=== PATIENT | female | born 1995 | race Caucasian/White ===

== ENCOUNTER 2017-07-05 10:48 | Emergency (ER) | payer BC, MEDICAID ==
[~2017-07-05] VITALS: Ht 162.6 cm; Wt 54.5 kg
[2017-07-05] MEDS ORDERED: KETOROLAC 60MG/2ML VIAL IM ONE (11:45)
[2017-07-05 14:47] VITALS: BP 109/55
== END 2017-07-05 15:26 | disposition home or self-care (01) ==
LOC: ER 11:13
DX: M25.562 Pain in left knee (principal); M25.572 Pain in left ankle and joints of left foot; J45.909 Unspecified asthma, uncomplicated; F90.9 Attention-deficit hyperactivity disorder, unspecified type; Z88.0 Allergy status to penicillin
CPT/HCPCS: 29505; 73562; 73590; 93971; 96372; 99284; J1885

== ENCOUNTER 2017-12-04 07:23 | Emergency (ER) | payer MEDICAID | END 2017-12-04 07:56 | disposition left against medical advice (07) | LOC: ER 07:23 | DX: Z53.21 Procedure and treatment not carried out due to patient leaving prior to being seen by health care provider (principal) ==

== ENCOUNTER 2018-03-16 03:17 | Emergency (ER) | payer MEDICAID ==
[~2018-03-16] VITALS: Ht 160 cm; Wt 57.0 kg
[2018-03-16 03:32] VITALS: BP 111/69
== END 2018-03-16 09:10 | disposition left against medical advice (07) ==
LOC: ER 03:17
DX: Z53.21 Procedure and treatment not carried out due to patient leaving prior to being seen by health care provider (principal)

== ENCOUNTER 2018-05-02 23:10 | Emergency (ER) | payer MEDICAID ==
[~2018-05-02] VITALS: Ht 162.6 cm; Wt 59.0 kg
[2018-05-03 02:19] LABS: BASOPHILS % 0.4 % (0.0-2.0); EOSINOPHILS % 2.8 % (0.0-5.0); HEMATOCRIT. 42.2 % (36.0-48.0); HEMOGLOBIN. 13.8 g/dL (12.0-16.0); LYMPHOCYTES % 50.2 % (20.0-50.0); MEAN CORPUSCULAR VOLUME 82.5 fL (81.0-99.0); MONOCYTES % 6.3 % (2.0-8.0); NEUTROPHILS % 40.3 % (40.0-76.0); PLATELET 392 x1000/uL (130-400); RED BLOOD CELL COUNT 5.11 mill/uL (4.2-5.4); RED CELL DISTRIBUTION WIDTH 14.7 % (11.6-14.6)
[2018-05-03 02:26] LABS: CHLORIDE 104 mEq/L (98-107)
[2018-05-03 02:30] LABS: ETHANOL BLOOD < 10 mg/dL
[2018-05-03 04:39] VITALS: BP 110/61
[2018-05-03 06:07] LABS: CLARITY URINE CLOUDY (CLEAR); COLOR URINE YELLOW (YELLOW); KETONES URINE TRACE (NEGATIVE); LEUKOCYTE ESTERASE URINE 2+ (NEGATIVE); NITRITE URINE NEGATIVE (NEGATIVE); OCCULT BLOOD URINE TRACE (NEGATIVE); PH URINE 5.5 (4.5-8.0); PROTEIN URINE TRACE (NEGATIVE); SPECIFIC GRAVITY URINE 1.039 (1.005-1.030); UROBILINOGEN URINE 0.2 E.U./dL (0.2-1.0)
[2018-05-03 06:25] LABS: *BARBITURATES SCREEN URINE NEGATIVE (NEGATIVE); *BENZODIAZEPINES SCREEN URINE NEGATIVE (NEGATIVE); *COCAINE SCREEN URINE NEGATIVE (NEGATIVE); METHADONE URINE SCREEN NEGATIVE (NEGATIVE)
[2018-05-03 06:26] LABS: OPIATES URINE SCREEN NEGATIVE (NEGATIVE); PHENCYCLIDINE URINE SCREEN NEGATIVE (NEGATIVE)
[2018-05-03 06:36] LABS: *AMPHETAMINES SCREEN URINE PRESUMTIVE POSITIVE (NEGATIVE); CANNABINOID URINE SCREEN PRESUMTIVE POSITIVE (NEGATIVE)
== END 2018-05-03 05:32 | disposition left against medical advice (07) ==
LOC: ER 05-03 01:24
DX: R44.1 Visual hallucinations (principal); R44.0 Auditory hallucinations; F12.10 Cannabis abuse, uncomplicated; F15.10 Other stimulant abuse, uncomplicated; J45.909 Unspecified asthma, uncomplicated; F31.9 Bipolar disorder, unspecified; Z88.0 Allergy status to penicillin
CPT/HCPCS: 36415; 80305; 99284

== ENCOUNTER 2019-05-31 13:42 | Emergency (ER) | payer MEDICAID ==
[~2019-05-31] VITALS: Ht 152.4 cm; Wt 60.0 kg
[2019-05-31 14:01] VITALS: BP 132/77
== END 2019-05-31 16:34 | disposition home or self-care (01) ==
LOC: ER 13:42
DX: R11.2 Nausea with vomiting, unspecified (principal); R03.0 Elevated blood-pressure reading, without diagnosis of hypertension; F15.10 Other stimulant abuse, uncomplicated; F12.90 Cannabis use, unspecified, uncomplicated; Z86.59 Personal history of other mental and behavioral disorders
CPT/HCPCS: 99283

== ENCOUNTER 2019-08-14 17:31 | Emergency (ER) | payer MEDICAID ==
[~2019-08-14] VITALS: Ht 162.6 cm; Wt 62.0 kg
[2019-08-14 17:41] VITALS: BP 129/80
[2019-08-14] MEDS ORDERED: ACETAMINOPHEN 325MG TABLET PO ONE (18:45)
[2019-08-14 19:28] LABS: *BARBITURATES SCREEN URINE NEGATIVE (NEGATIVE)
[2019-08-14 19:29] LABS: *BENZODIAZEPINES SCREEN URINE NEGATIVE (NEGATIVE); *COCAINE SCREEN URINE NEGATIVE (NEGATIVE); CANNABINOID URINE SCREEN NEGATIVE (NEGATIVE); METHADONE URINE SCREEN NEGATIVE (NEGATIVE); OPIATES URINE SCREEN NEGATIVE (NEGATIVE); PHENCYCLIDINE URINE SCREEN NEGATIVE (NEGATIVE)
[2019-08-14 19:36] LABS: *AMPHETAMINES SCREEN URINE PRESUMTIVE POSITIVE (NEGATIVE)
== END 2019-08-14 19:54 | disposition home or self-care (01) ==
LOC: ER 17:31
DX: M25.512 Pain in left shoulder (principal); F15.10 Other stimulant abuse, uncomplicated; F16.10 Hallucinogen abuse, uncomplicated; J45.909 Unspecified asthma, uncomplicated; F12.10 Cannabis abuse, uncomplicated; F31.9 Bipolar disorder, unspecified
CPT/HCPCS: 73030; 73080; 73090; 73120; 80305; 81025; 99284

== ENCOUNTER 2020-06-29 21:57 | Emergency (ER) | payer MEDICAID ==
[~2020-06-29] VITALS: Ht 162.6 cm; Wt 71.0 kg
[2020-06-29 22:34] VITALS: BP 135/75
== END 2020-06-29 22:53 | disposition left against medical advice (07) ==
LOC: ER 21:57
DX: Z53.21 Procedure and treatment not carried out due to patient leaving prior to being seen by health care provider (principal)

== ENCOUNTER 2020-12-25 05:29 | Emergency (ER) | payer MEDICAID ==
[~2020-12-25] VITALS: Ht 160 cm; Wt 72.0 kg
[2020-12-25 05:42] VITALS: BP 124/85
[2020-12-25] MEDS ORDERED: CLOT15CR27 TP (06:10)
== END 2020-12-25 06:26 | disposition home or self-care (01) ==
LOC: ER 05:29
DX: B35.6 Tinea cruris (principal); F25.0 Schizoaffective disorder, bipolar type; J45.909 Unspecified asthma, uncomplicated; F15.90 Other stimulant use, unspecified, uncomplicated; F12.90 Cannabis use, unspecified, uncomplicated
CPT/HCPCS: 81025; 99282

== ENCOUNTER 2021-03-17 19:39 | Emergency (ER) | payer MEDICAID ==
[~2021-03-17] VITALS: Ht 165.1 cm; Wt 74.0 kg
[~2021-03-17 19:39] MED LIST: CLOT15CR27 TP
[2021-03-17 19:52] VITALS: BP 124/85
[2021-03-17 20:28] LABS: CLARITY URINE CLEAR (CLEAR); COLOR URINE YELLOW (YELLOW); KETONES URINE TRACE (NEGATIVE); LEUKOCYTE ESTERASE URINE NEGATIVE (NEGATIVE); NITRITE URINE NEGATIVE (NEGATIVE); OCCULT BLOOD URINE 2+ (NEGATIVE); PROTEIN URINE NEGATIVE (NEGATIVE); SPECIFIC GRAVITY URINE 1.026 (1.005-1.030); UROBILINOGEN URINE 0.2 E.U./dL (0.2-1.0)
== END 2021-03-18 00:35 | disposition left against medical advice (07) ==
LOC: ER 19:39
DX: R07.89 Other chest pain (principal); J45.909 Unspecified asthma, uncomplicated; I10 Essential (primary) hypertension; F12.10 Cannabis abuse, uncomplicated; F15.10 Other stimulant abuse, uncomplicated
CPT/HCPCS: 71045; 81003; 81025; 93005; 99285

== ENCOUNTER 2021-05-19 15:11 | Emergency (ER) | payer OTHER, MEDICAID ==
[~2021-05-19] VITALS: Ht 162.6 cm; Wt 74.0 kg
[2021-05-19 15:14] VITALS: BP 123/76
== END 2021-05-19 19:19 | disposition left against medical advice (07) ==
LOC: ER 15:11
DX: Z53.21 Procedure and treatment not carried out due to patient leaving prior to being seen by health care provider (principal)
CPT/HCPCS: 71045

== ENCOUNTER 2021-06-30 22:54 | Emergency (ER) | payer OTHER, MEDICAID ==
[~2021-06-30] VITALS: Ht 167.6 cm; Wt 81.1 kg
[2021-07-01 00:28] LABS: BASOPHILS % 0.4 % (0.0-2.0); EOSINOPHILS % 1.8 % (0.0-5.0); LYMPHOCYTES % 37.6 % (20.0-50.0); MEAN CORPUSCULAR HEMOGLOBIN 27.3 pg (28.0-32.0); MEAN CORPUSCULAR VOLUME 83.8 fL (81.0-99.0); MEAN PLATELET VOLUME 6.8 fl (7.4-10.4); MONOCYTES % 6.5 % (2.0-8.0); NEUTROPHILS % 53.7 % (40.0-76.0); PLATELET 380 x1000/uL (130-400); RED BLOOD CELL COUNT 4.78 mill/uL (4.2-5.4); RED CELL DISTRIBUTION WIDTH 13.7 % (11.6-14.6)
[2021-07-01] MEDS ORDERED: OLANZAPINE 5MG TABLET ODT PO ONE (00:30)
[2021-07-01 00:35] LABS: CHLORIDE 106 mEq/L (98-107)
[2021-07-01 00:39] LABS: ETHANOL BLOOD < 10 mg/dL
[2021-07-01 03:42] LABS: CLARITY URINE CLEAR (CLEAR); COLOR URINE YELLOW (YELLOW); KETONES URINE NEGATIVE (NEGATIVE); LEUKOCYTE ESTERASE URINE NEGATIVE (NEGATIVE); NITRITE URINE NEGATIVE (NEGATIVE); OCCULT BLOOD URINE 2+ (NEGATIVE); PH URINE 6.5 (4.5-8.0); PROTEIN URINE NEGATIVE (NEGATIVE); SPECIFIC GRAVITY URINE 1.021 (1.005-1.030); UROBILINOGEN URINE 0.2 E.U./dL (0.2-1.0)
[2021-07-01 03:51] LABS: *BARBITURATES SCREEN URINE NEGATIVE (NEGATIVE)
[2021-07-01 03:52] LABS: *BENZODIAZEPINES SCREEN URINE NEGATIVE (NEGATIVE); *COCAINE SCREEN URINE NEGATIVE (NEGATIVE); CANNABINOID URINE SCREEN NEGATIVE (NEGATIVE); METHADONE URINE SCREEN NEGATIVE (NEGATIVE); OPIATES URINE SCREEN NEGATIVE (NEGATIVE); PHENCYCLIDINE URINE SCREEN NEGATIVE (NEGATIVE)
[2021-07-01 03:53] LABS: *AMPHETAMINES SCREEN URINE PRESUMTIVE POSITIVE (NEGATIVE)
[2021-07-01 10:00] VITALS: BP 122/62
== END 2021-07-01 11:46 | disposition home or self-care (01) ==
LOC: ER 23:06
DX: R44.0 Auditory hallucinations (principal); R44.1 Visual hallucinations; J45.909 Unspecified asthma, uncomplicated; F31.9 Bipolar disorder, unspecified; I10 Essential (primary) hypertension; F12.10 Cannabis abuse, uncomplicated; F15.10 Other stimulant abuse, uncomplicated; Z20.822 Contact with and (suspected) exposure to COVID-19
CPT/HCPCS: 36415; 76830; 76856; 80053; 80305; 80320; 81003; 84702; 85025; 99285; C9803; U0003; U0005; G0480

== ENCOUNTER → 2021-10-25 | Emergency (ER) | payer OTHER, MEDICAID | LOC: ER 10:15 | DX: Z53.21 Procedure and treatment not carried out due to patient leaving prior to being seen by health care provider (principal) ==

== ENCOUNTER 2021-11-25 09:13 | Emergency (ER) | payer OTHER, MEDICAID ==
[~2021-11-25] VITALS: Ht 167.6 cm; Wt 76.0 kg
[2021-11-25 09:27] VITALS: BP 148/90
== END 2021-11-25 14:41 | disposition left against medical advice (07) ==
LOC: ER 10:53
DX: Z53.21 Procedure and treatment not carried out due to patient leaving prior to being seen by health care provider (principal)

== ENCOUNTER 2022-01-20 09:44 | Emergency (ER) | payer OTHER, MEDICAID ==
[~2022-01-20] VITALS: Ht 162.6 cm; Wt 80.0 kg
[2022-01-20 09:52] VITALS: BP 123/71
[2022-01-20] MEDS ORDERED: AZITHROMYCIN 500 MG TABLET PO SCH (10:30)
[2022-01-20] MEDS ORDERED: GENTAMICIN SULF 40MG/ML 2ML VIAL IM ONE (10:30)
[2022-01-20] MEDS ORDERED: DOXY100C5 MT (10:35)
[2022-01-20] MEDS ORDERED: OLAN5TAB3 PO (10:35)
[2022-01-20] MEDS ORDERED: ALBU6.7H3 INH (10:36)
[2022-01-20] MEDS ORDERED: CEFTRIAXONE SODIUM 500 MG/VIAL IM STA (11:09)
[2022-01-20 11:18] LABS: CLARITY URINE CLOUDY (CLEAR); COLOR URINE YELLOW (YELLOW); KETONES URINE TRACE (NEGATIVE); LEUKOCYTE ESTERASE URINE NEGATIVE (NEGATIVE); NITRITE URINE NEGATIVE (NEGATIVE); OCCULT BLOOD URINE 2+ (NEGATIVE); PROTEIN URINE TRACE (NEGATIVE); SPECIFIC GRAVITY URINE 1.033 (1.005-1.030)
[2022-01-22 09:07] LABS: HIV SCREEN 4G Non Reactive (Non Reactive)
== END 2022-01-20 13:20 | disposition home or self-care (01) ==
LOC: ER 10:13
DX: A74.9 Chlamydial infection, unspecified (principal); A54.9 Gonococcal infection, unspecified; Z76.0 Encounter for issue of repeat prescription; J45.909 Unspecified asthma, uncomplicated; F31.9 Bipolar disorder, unspecified; I10 Essential (primary) hypertension; F20.9 Schizophrenia, unspecified; F12.10 Cannabis abuse, uncomplicated; F15.10 Other stimulant abuse, uncomplicated
CPT/HCPCS: 81003; 81025; 86592; 86593; 86780; 87389; 96372; 99283; J0696; J1580

== ENCOUNTER 2022-01-29 22:16 | Emergency (ER) | payer OTHER, MEDICAID ==
[~2022-01-29] VITALS: Ht 162.6 cm; Wt 55.0 kg
[~2022-01-29 22:16] MED LIST changes: +ALBU6.7H3 INH; +DOXY100C5 MT; +OLAN5TAB3 PO
[2022-01-30 03:30] LABS: CHLORIDE 104 mEq/L (98-107)
[2022-01-30 03:32] LABS: CLARITY URINE CLEAR (CLEAR); COLOR URINE YELLOW (YELLOW); KETONES URINE 1+ (NEGATIVE); LEUKOCYTE ESTERASE URINE NEGATIVE (NEGATIVE); NITRITE URINE NEGATIVE (NEGATIVE); OCCULT BLOOD URINE TRACE (NEGATIVE); PH URINE 5.5 (4.5-8.0); PROTEIN URINE TRACE (NEGATIVE); SPECIFIC GRAVITY URINE 1.026 (1.005-1.030); UROBILINOGEN URINE 0.2 E.U./dL (0.2-1.0)
[2022-01-30 03:34] LABS: BASOPHILS % 0.2 % (0.0-2.0); EOSINOPHILS % 1.2 % (0.0-5.0); HCG SCREEN NEGATIVE; HEMATOCRIT. 39.5 % (36.0-48.0); HEMOGLOBIN. 12.8 g/dL (12.0-16.0); LYMPHOCYTES % 57.8 % (20.0-50.0); MEAN CORPUSCULAR HEMOGLOBIN 26.5 pg (28.0-32.0); MEAN PLATELET VOLUME 7.2 fl (7.4-10.4); MONOCYTES % 11.6 % (2.0-8.0); NEUTROPHILS % 29.2 % (40.0-76.0); PLATELET 329 x1000/uL (130-400); RED BLOOD CELL COUNT 4.81 mill/uL (4.2-5.4); RED CELL DISTRIBUTION WIDTH 14.7 % (11.6-14.6)
[2022-01-30 03:36] LABS: ETHANOL BLOOD < 10 mg/dL
[2022-01-30 03:50] LABS: *BARBITURATES SCREEN URINE NEGATIVE (NEGATIVE); *BENZODIAZEPINES SCREEN URINE NEGATIVE (NEGATIVE); CANNABINOID URINE SCREEN NEGATIVE (NEGATIVE); METHADONE URINE SCREEN NEGATIVE (NEGATIVE); OPIATES URINE SCREEN NEGATIVE (NEGATIVE)
[2022-01-30 03:59] LABS: *AMPHETAMINES SCREEN URINE PRESUMTIVE POSITIVE (NEGATIVE); *COCAINE SCREEN URINE PRESUMTIVE POSITIVE (NEGATIVE); PHENCYCLIDINE URINE SCREEN PRESUMTIVE POSITIVE (NEGATIVE)
[2022-01-30] MEDS ORDERED: POTASSIUM CHLORIDE 20MEQ TABLET SR PO ONE (04:15)
[2022-01-30] MEDS ORDERED: RISP05 PO (08:40)
[2022-01-30] MEDS ORDERED: RISPERIDONE 0.5MG TABLET PO SCH (09:00)
[2022-01-30 09:33] VITALS: BP 100/54
== END 2022-01-30 09:37 | disposition home or self-care (01) ==
LOC: ER 22:16
DX: F23 Brief psychotic disorder (principal); F15.10 Other stimulant abuse, uncomplicated; I10 Essential (primary) hypertension; F12.10 Cannabis abuse, uncomplicated; J45.909 Unspecified asthma, uncomplicated; Z88.0 Allergy status to penicillin
CPT/HCPCS: 36415; 80053; 80305; 80307; 80320; 80329; 81003; 81025; 84703; 85025; 99283; G0480

== ENCOUNTER 2022-02-22 12:13 | Emergency (ER) | payer OTHER, MEDICAID ==
[~2022-02-22] VITALS: Ht 165.1 cm; Wt 64.0 kg
[~2022-02-22 12:13] MED LIST changes: +RISP05 PO
[2022-02-22 12:19] VITALS: BP 101/78
== END 2022-02-22 16:27 | disposition left against medical advice (07) ==
LOC: ER 12:55
DX: Z53.21 Procedure and treatment not carried out due to patient leaving prior to being seen by health care provider (principal)

== ENCOUNTER 2022-03-04 12:36 | Emergency (ER) | payer OTHER, MEDICAID ==
[~2022-03-04] VITALS: Ht 165.1 cm; Wt 65.0 kg
[2022-03-04 13:03] VITALS: BP 122/79
== END 2022-03-05 00:28 | disposition left against medical advice (07) ==
LOC: ER 12:36
DX: R55 Syncope and collapse (principal); F20.9 Schizophrenia, unspecified; F15.10 Other stimulant abuse, uncomplicated; F14.10 Cocaine abuse, uncomplicated; F31.9 Bipolar disorder, unspecified; I10 Essential (primary) hypertension; Z79.899 Other long term (current) drug therapy; Z88.0 Allergy status to penicillin
CPT/HCPCS: 99281

== ENCOUNTER 2022-05-15 02:43 | Emergency (ER) | payer OTHER, MEDICAID ==
[~2022-05-15] VITALS: Ht 165.1 cm; Wt 75.0 kg
[2022-05-15] MEDS ORDERED: LORAZEPAM 2MG/ML CPJ IV STA (03:07)
[2022-05-15] MEDS ORDERED: ACETAMINOPHEN 325MG TABLET PO STA (03:07)
[2022-05-15] MEDS ORDERED: SODIUM CHLORIDE 0.9% 1,000 ML IV ONE ×2 (03:15→05:00)
[2022-05-15 03:56] LABS: BASOPHILS % 0.3 % (0.0-2.0); EOSINOPHILS % 0.1 % (0.0-5.0); HEMATOCRIT. 35.9 % (36.0-48.0); HEMOGLOBIN. 11.7 g/dL (12.0-16.0); LYMPHOCYTES % 19.7 % (20.0-50.0); MEAN CORPUSCULAR HEMOGLOBIN 26.6 pg (28.0-32.0); MEAN CORPUSCULAR VOLUME 81.6 fL (81.0-99.0); MEAN PLATELET VOLUME 6.8 fl (7.4-10.4); MONOCYTES % 5.2 % (2.0-8.0); NEUTROPHILS % 74.7 % (40.0-76.0); PLATELET 424 x1000/uL (130-400); RED BLOOD CELL COUNT 4.41 mill/uL (4.2-5.4); RED CELL DISTRIBUTION WIDTH 14.3 % (11.6-14.6)
[2022-05-15 04:26] LABS: CHLORIDE 103 mEq/L (98-107)
[2022-05-15 04:26] LABS: CLARITY URINE CLEAR (CLEAR); COLOR URINE YELLOW (YELLOW); KETONES URINE NEGATIVE (NEGATIVE); LEUKOCYTE ESTERASE URINE 2+ (NEGATIVE); NITRITE URINE NEGATIVE (NEGATIVE); OCCULT BLOOD URINE 2+ (NEGATIVE); PH URINE 7.5 (4.5-8.0); PROTEIN URINE NEGATIVE (NEGATIVE); SPECIFIC GRAVITY URINE 1.021 (1.005-1.030)
[2022-05-15 04:39] LABS: ETHANOL BLOOD < 10 mg/dL
[2022-05-15 04:53] LABS: HCG SCREEN NEGATIVE
[2022-05-15 05:11] LABS: *BARBITURATES SCREEN URINE NEGATIVE (NEGATIVE); *BENZODIAZEPINES SCREEN URINE NEGATIVE (NEGATIVE); *COCAINE SCREEN URINE NEGATIVE (NEGATIVE); CANNABINOID URINE SCREEN NEGATIVE (NEGATIVE); METHADONE URINE SCREEN NEGATIVE (NEGATIVE); OPIATES URINE SCREEN NEGATIVE (NEGATIVE); PHENCYCLIDINE URINE SCREEN NEGATIVE (NEGATIVE)
[2022-05-15 05:35] LABS: *AMPHETAMINES SCREEN URINE PRESUMTIVE POSITIVE (NEGATIVE)
[2022-05-15 05:40] VITALS: BP 122/81
[2022-05-17 05:12] LABS: NEISSERIA GONORRHOEAE NAA Negative (Negative)
== END 2022-05-15 07:18 | disposition home or self-care (01) ==
LOC: ER 02:43
DX: F15.10 Other stimulant abuse, uncomplicated (principal); R00.0 Tachycardia, unspecified; F41.9 Anxiety disorder, unspecified; F20.9 Schizophrenia, unspecified; I10 Essential (primary) hypertension; J45.909 Unspecified asthma, uncomplicated; F31.9 Bipolar disorder, unspecified; Z88.0 Allergy status to penicillin
CPT/HCPCS: 36415; 80053; 80305; 80320; 81003; 84703; 85025; 87491; 87591; 93005; 96361; 96374; 99284; J2060; J7030; Z7610; G0480

== ENCOUNTER 2022-05-28 03:28 | Emergency (ER) | payer OTHER, MEDICAID ==
[~2022-05-28] VITALS: Ht 162.6 cm; Wt 73.0 kg
[2022-05-28] MEDS ORDERED: OLANZAPINE 5MG TABLET ODT PO ONE (08:15)
[2022-05-28] MEDS ORDERED: LORAZEPAM 2MG/ML CPJ IM PRN (08:15)
[2022-05-28 08:26] LABS: BASOPHILS % 0.4 % (0.0-2.0); EOSINOPHILS % 3.5 % (0.0-5.0); HEMATOCRIT. 35.7 % (36.0-48.0); HEMOGLOBIN. 11.7 g/dL (12.0-16.0); LYMPHOCYTES % 28.2 % (20.0-50.0); MEAN CORPUSCULAR HEMOGLOBIN 26.9 pg (28.0-32.0); MEAN CORPUSCULAR VOLUME 82.6 fL (81.0-99.0); MEAN PLATELET VOLUME 6.3 fl (7.4-10.4); MONOCYTES % 8.5 % (2.0-8.0); NEUTROPHILS % 59.4 % (40.0-76.0); PLATELET 473 x1000/uL (130-400); RED BLOOD CELL COUNT 4.33 mill/uL (4.2-5.4); RED CELL DISTRIBUTION WIDTH 14.8 % (11.6-14.6)
[2022-05-28 08:40] LABS: CHLORIDE 103 mEq/L (98-107)
[2022-05-28 08:47] LABS: ETHANOL BLOOD < 10 mg/dL
[2022-05-28 15:58] LABS: *BARBITURATES SCREEN URINE NEGATIVE (NEGATIVE); *BENZODIAZEPINES SCREEN URINE NEGATIVE (NEGATIVE); CANNABINOID URINE SCREEN NEGATIVE (NEGATIVE); METHADONE URINE SCREEN NEGATIVE (NEGATIVE); OPIATES URINE SCREEN NEGATIVE (NEGATIVE)
[2022-05-28 16:04] LABS: *AMPHETAMINES SCREEN URINE PRESUMTIVE POSITIVE (NEGATIVE); *COCAINE SCREEN URINE PRESUMTIVE POSITIVE (NEGATIVE); PHENCYCLIDINE URINE SCREEN PRESUMTIVE POSITIVE (NEGATIVE)
[2022-05-29] MEDS ORDERED: IBUP-2028 PO (05:47)
[2022-05-29] MEDS ORDERED: ALBU6.7H3 INH (05:47)
[2022-05-29 07:55] VITALS: BP 110/70
== END 2022-05-29 07:57 | disposition home or self-care (01) ==
LOC: ER 03:28
DX: F23 Brief psychotic disorder (principal); F15.10 Other stimulant abuse, uncomplicated; F14.10 Cocaine abuse, uncomplicated; F16.10 Hallucinogen abuse, uncomplicated; Z76.0 Encounter for issue of repeat prescription; Z88.0 Allergy status to penicillin
CPT/HCPCS: 36415; 80053; 80305; 80307; 80320; 80329; 85025; 93005; 96372; 99285; J2060; Z7610; G0480

== ENCOUNTER 2022-06-07 23:37 | Emergency (ER) | payer OTHER, MEDICAID ==
[~2022-06-07] VITALS: Ht 165.1 cm; Wt 71.0 kg
[~2022-06-07 23:37] MED LIST changes: +IBUP-2028 PO
[2022-06-08] MEDS ORDERED: SODIUM CHLORIDE 0.9% 1,000 ML IV ONE (00:30)
[2022-06-08] MEDS ORDERED: LORAZEPAM 2MG/ML CPJ IV ONE (00:30)
[2022-06-08 00:38] LABS: BASOPHILS % 0.4 % (0.0-2.0); EOSINOPHILS % 4.2 % (0.0-5.0); HEMATOCRIT. 36.5 % (36.0-48.0); LYMPHOCYTES % 35.5 % (20.0-50.0); MEAN CORPUSCULAR HEMOGLOBIN 27.2 pg (28.0-32.0); MEAN CORPUSCULAR VOLUME 82.8 fL (81.0-99.0); MEAN PLATELET VOLUME 6.3 fl (7.4-10.4); MONOCYTES % 6.8 % (2.0-8.0); NEUTROPHILS % 53.1 % (40.0-76.0); PLATELET 425 x1000/uL (130-400); RED BLOOD CELL COUNT 4.41 mill/uL (4.2-5.4); RED CELL DISTRIBUTION WIDTH 14.6 % (11.6-14.6)
[2022-06-08 00:38] LABS: CLARITY URINE CLOUDY (CLEAR); COLOR URINE YELLOW (YELLOW); KETONES URINE NEGATIVE (NEGATIVE); LEUKOCYTE ESTERASE URINE 3+ (NEGATIVE); NITRITE URINE NEGATIVE (NEGATIVE); OCCULT BLOOD URINE 2+ (NEGATIVE); PH URINE 6.5 (4.5-8.0); PROTEIN URINE NEGATIVE (NEGATIVE); SPECIFIC GRAVITY URINE 1.025 (1.005-1.030)
[2022-06-08 00:44] LABS: CHLORIDE 103 mEq/L (98-107)
[2022-06-08 00:52] LABS: ETHANOL BLOOD < 10 mg/dL
[2022-06-08] MEDS ORDERED: SULFAMETHOXAZOLE/TRIMETHOPRIM 800/160MG TABLET PO ONE (01:15)
[2022-06-08] MEDS ORDERED: SULF1TAB48 MT (02:31)
[2022-06-08] MEDS ORDERED: IBUP-2029 MT (02:31)
[2022-06-08 02:45] VITALS: BP 114/67
[2022-06-08 09:37] LABS: *BARBITURATES SCREEN URINE NEGATIVE (NEGATIVE); *BENZODIAZEPINES SCREEN URINE NEGATIVE (NEGATIVE); *COCAINE SCREEN URINE NEGATIVE (NEGATIVE); CANNABINOID URINE SCREEN NEGATIVE (NEGATIVE); METHADONE URINE SCREEN NEGATIVE (NEGATIVE); OPIATES URINE SCREEN NEGATIVE (NEGATIVE); PHENCYCLIDINE URINE SCREEN NEGATIVE (NEGATIVE)
[2022-06-08 09:41] LABS: *AMPHETAMINES SCREEN URINE PRESUMTIVE POSITIVE (NEGATIVE)
== END 2022-06-08 02:40 | disposition home or self-care (01) ==
LOC: ER 23:37
DX: N39.0 Urinary tract infection, site not specified (principal); R10.9 Unspecified abdominal pain; F19.10 Other psychoactive substance abuse, uncomplicated; J45.909 Unspecified asthma, uncomplicated; F31.9 Bipolar disorder, unspecified; I10 Essential (primary) hypertension; F20.9 Schizophrenia, unspecified; Z79.899 Other long term (current) drug therapy; F14.10 Cocaine abuse, uncomplicated; F12.10 Cannabis abuse, uncomplicated; F15.10 Other stimulant abuse, uncomplicated
CPT/HCPCS: 36415; 80053; 80305; 80320; 81003; 83690; 85025; 87086; 96361; 96374; 99283; J2060; J7030; Z7610; G0480

== ENCOUNTER 2022-06-24 11:37 | Emergency (ER) | payer MEDICAID, OTHER ==
[~2022-06-24] VITALS: Ht 162.6 cm; Wt 61.0 kg
[~2022-06-24 11:37] MED LIST changes: +IBUP-2029 MT; +SULF1TAB48 MT
[2022-06-24 11:48] VITALS: BP 117/82
== END 2022-06-24 14:16 | disposition left against medical advice (07) ==
LOC: ER 11:37
DX: R10.9 Unspecified abdominal pain (principal); Z53.21 Procedure and treatment not carried out due to patient leaving prior to being seen by health care provider
CPT/HCPCS: 99281

== ENCOUNTER 2022-07-06 13:32 | Emergency (ER) | payer MEDICAID ==
[~2022-07-06] VITALS: Ht 162.6 cm; Wt 77.0 kg
[2022-07-06 14:23] VITALS: BP 128/69
[2022-07-06 14:45] LABS: BASOPHILS % 0.3 % (0.0-2.0); EOSINOPHILS % 1.3 % (0.0-5.0); HEMATOCRIT. 38.6 % (36.0-48.0); HEMOGLOBIN. 12.8 g/dL (12.0-16.0); LYMPHOCYTES % 37.2 % (20.0-50.0); MEAN CORPUSCULAR HEMOGLOBIN 27.4 pg (28.0-32.0); MEAN CORPUSCULAR VOLUME 82.3 fL (81.0-99.0); MEAN PLATELET VOLUME 6.8 fl (7.4-10.4); MONOCYTES % 6.4 % (2.0-8.0); NEUTROPHILS % 54.8 % (40.0-76.0); PLATELET 431 x1000/uL (130-400); RED BLOOD CELL COUNT 4.69 mill/uL (4.2-5.4); RED CELL DISTRIBUTION WIDTH 13.9 % (11.6-14.6)
[2022-07-06 14:55] LABS: CHLORIDE 106 mEq/L (98-107); HCG SCREEN NEGATIVE
== END 2022-07-06 16:49 | disposition left against medical advice (07) ==
LOC: ER 13:32
DX: Z53.21 Procedure and treatment not carried out due to patient leaving prior to being seen by health care provider (principal)
CPT/HCPCS: 36415; 80053; 84703; 85025; 99281

== ENCOUNTER 2022-07-16 17:08 | Emergency (ER) | payer MEDICAID ==
[~2022-07-16] VITALS: Ht 167.6 cm; Wt 75.0 kg
[2022-07-16 17:18] VITALS: BP 124/78
== END 2022-07-16 21:11 | disposition left against medical advice (07) ==
LOC: ER 17:08
DX: N89.8 Other specified noninflammatory disorders of vagina (principal); Z53.21 Procedure and treatment not carried out due to patient leaving prior to being seen by health care provider
CPT/HCPCS: 99281

== ENCOUNTER → 2022-08-02 | Emergency (ER) | payer MEDICAID ==
[~2022-08-02] VITALS: Ht 170.2 cm; Wt 75.0 kg
[~2022-08-02] MED LIST changes: +AZITHROMYCIN 500 MG TABLET PO ONE; +CEFTRIAXONE SODIUM 500 MG/VIAL IM ONE; +NITR-87 MT
[2022-08-02 17:49] LABS: BASOPHILS % 0.4 % (0.0-2.0); EOSINOPHILS % 2.4 % (0.0-5.0); HEMATOCRIT. 37.8 % (36.0-48.0); HEMOGLOBIN. 12.4 g/dL (12.0-16.0); LYMPHOCYTES % 31.7 % (20.0-50.0); MEAN CORPUSCULAR HEMOGLOBIN 27.4 pg (28.0-32.0); MEAN CORPUSCULAR VOLUME 83.7 fL (81.0-99.0); MEAN PLATELET VOLUME 6.9 fl (7.4-10.4); MONOCYTES % 8.4 % (2.0-8.0); NEUTROPHILS % 57.1 % (40.0-76.0); PLATELET 409 x1000/uL (130-400); RED BLOOD CELL COUNT 4.51 mill/uL (4.2-5.4); RED CELL DISTRIBUTION WIDTH 14.2 % (11.6-14.6)
[2022-08-02 17:54] VITALS: BP 110/74
[2022-08-02 18:05] LABS: CHLORIDE 106 mEq/L (98-107)
[2022-08-02 18:10] LABS: CLARITY URINE CLOUDY (CLEAR); COLOR URINE YELLOW (YELLOW); KETONES URINE NEGATIVE (NEGATIVE); LEUKOCYTE ESTERASE URINE 1+ (NEGATIVE); NITRITE URINE NEGATIVE (NEGATIVE); OCCULT BLOOD URINE 3+ (NEGATIVE); PH URINE 5.5 (4.5-8.0); PROTEIN URINE NEGATIVE (NEGATIVE); SPECIFIC GRAVITY URINE 1.025 (1.005-1.030); UROBILINOGEN URINE 0.2 E.U./dL (0.2-1.0)
[2022-08-06 13:07] LABS: NEISSERIA GONORRHOEAE NAA Negative (Negative)
== END | disposition home or self-care (01) ==
LOC: ER 16:36
DX: N39.0 Urinary tract infection, site not specified (principal); J45.909 Unspecified asthma, uncomplicated; F14.10 Cocaine abuse, uncomplicated; F12.10 Cannabis abuse, uncomplicated; F15.10 Other stimulant abuse, uncomplicated; Z20.2 Contact with and (suspected) exposure to infections with a predominantly sexual mode of transmission; Z88.0 Allergy status to penicillin; Z79.899 Other long term (current) drug therapy
CPT/HCPCS: 36415; 80053; 81003; 81025; 85025; 87491; 87591; 93005; 96372; 99284; J0696

== ENCOUNTER 2022-11-12 12:37 | Emergency (ER) | payer MEDICAID ==
[~2022-11-12 12:37] MED LIST changes: -AZITHROMYCIN 500 MG TABLET PO ONE; -CEFTRIAXONE SODIUM 500 MG/VIAL IM ONE
== END 2022-11-12 12:50 | disposition left against medical advice (07) ==
LOC: ER 12:45
DX: Z53.21 Procedure and treatment not carried out due to patient leaving prior to being seen by health care provider (principal)

== ENCOUNTER 2023-05-31 18:49 | Emergency (ER) | payer MEDICAID ==
[~2023-05-31] VITALS: Ht 167.6 cm; Wt 71.7 kg
[2023-05-31 19:08] VITALS: BP 131/80; PULSE 100; RESP 16; TEMP 98.4; O2SAT 99
== END 2023-05-31 21:33 | disposition home or self-care (01) ==
LOC: ER 18:49
DX: R07.89 Other chest pain (principal); J45.909 Unspecified asthma, uncomplicated; F14.10 Cocaine abuse, uncomplicated; F12.10 Cannabis abuse, uncomplicated; F15.10 Other stimulant abuse, uncomplicated
CPT/HCPCS: 71045; 93005; 99283

== ENCOUNTER 2023-06-17 21:26 | Emergency (ER) | payer MEDICAID ==
[~2023-06-17] VITALS: Ht 160 cm; Wt 68.0 kg
[2023-06-17 21:43] VITALS: BP 153/93; PULSE 92; RESP 20; TEMP 97.8; O2SAT 100
[2023-06-17] MEDS ORDERED: RISP05 PO (22:57)
[2023-06-17] MEDS ORDERED: ALBU6.7H15 INH (22:57)
== END 2023-06-17 23:32 | disposition home or self-care (01) ==
LOC: ER 21:26
DX: L03.116 Cellulitis of left lower limb (principal); F20.9 Schizophrenia, unspecified; F41.9 Anxiety disorder, unspecified; F19.90 Other psychoactive substance use, unspecified, uncomplicated; F12.90 Cannabis use, unspecified, uncomplicated; F15.90 Other stimulant use, unspecified, uncomplicated; F14.90 Cocaine use, unspecified, uncomplicated
CPT/HCPCS: 99283

== ENCOUNTER 2023-07-17 04:36 | Emergency (ER) | payer MEDICAID ==
[~2023-07-17] VITALS: Ht 165.1 cm; Wt 63.0 kg
[~2023-07-17 04:36] MED LIST changes: +ALBU6.7H15 INH
[2023-07-17 04:41] VITALS: BP 131/91; RESP 16; TEMP 98.5; O2SAT 100
[2023-07-17 04:45] VITALS: PULSE 114
[2023-07-17] MEDS ORDERED: IBUP-2029 MT (05:49)
[2023-07-17] MEDS ORDERED: ALBU6.7H15 INH (05:49)
[2023-07-17] MEDS ORDERED: IBUPROFEN 600MG TABLET PO ONE (06:00)
== END 2023-07-17 05:57 | disposition home or self-care (01) ==
LOC: ER 04:36
DX: R51.9 Headache, unspecified (principal); F41.9 Anxiety disorder, unspecified; F20.9 Schizophrenia, unspecified; F14.10 Cocaine abuse, uncomplicated; F12.10 Cannabis abuse, uncomplicated; F15.10 Other stimulant abuse, uncomplicated
CPT/HCPCS: 99281; 99283

== ENCOUNTER 2023-07-21 06:20 | Emergency (ER) | payer MEDICAID ==
[~2023-07-21] VITALS: Ht 165.1 cm; Wt 69.0 kg
[2023-07-21 06:47] VITALS: BP 145/86; PULSE 86; RESP 18; TEMP 98.7; O2SAT 99
== END 2023-07-21 17:33 | disposition left against medical advice (07) ==
LOC: ER 06:20
DX: R42 Dizziness and giddiness (principal); Z53.21 Procedure and treatment not carried out due to patient leaving prior to being seen by health care provider
CPT/HCPCS: 81025

== ENCOUNTER 2023-09-13 10:24 | Emergency (ER) | payer MEDICAID ==
[~2023-09-13] VITALS: Ht 167.6 cm; Wt 70.0 kg
[2023-09-13 10:37] VITALS: O2SAT 100
[2023-09-13 11:39] VITALS: BP 113/77; PULSE 97; RESP 18; TEMP 97.7
== END 2023-09-13 11:54 | disposition home or self-care (01) ==
LOC: ER 11:04
DX: F80.81 Childhood onset fluency disorder (principal); F14.10 Cocaine abuse, uncomplicated; F15.10 Other stimulant abuse, uncomplicated; F12.10 Cannabis abuse, uncomplicated; Z88.0 Allergy status to penicillin; Z98.890 Other specified postprocedural states; Z79.899 Other long term (current) drug therapy; Z86.59 Personal history of other mental and behavioral disorders
CPT/HCPCS: 81025; 87070; 87430; 99283

== ENCOUNTER 2023-10-20 05:55 | Emergency (ER) | payer MEDICAID ==
[~2023-10-20] VITALS: Ht 165.1 cm; Wt 64.0 kg
[2023-10-20 06:00] VITALS: O2SAT 99
[2023-10-20] MEDS ORDERED: ALBU6.7H15 INH (08:18)
[2023-10-20] MEDS ORDERED: P50 PO (08:18)
[2023-10-20 08:26] VITALS: BP 146/97; PULSE 109; RESP 18; TEMP 98.4
== END 2023-10-20 08:47 | disposition home or self-care (01) ==
LOC: ER 06:25
DX: J45.901 Unspecified asthma with (acute) exacerbation (principal); K59.00 Constipation, unspecified; F41.9 Anxiety disorder, unspecified; F20.9 Schizophrenia, unspecified; F17.200 Nicotine dependence, unspecified, uncomplicated; F14.90 Cocaine use, unspecified, uncomplicated; F12.90 Cannabis use, unspecified, uncomplicated; F15.90 Other stimulant use, unspecified, uncomplicated; Z88.0 Allergy status to penicillin
CPT/HCPCS: 99283

== ENCOUNTER 2023-11-01 08:13 | Emergency (ER) | payer MEDICAID ==
[~2023-11-01] VITALS: Ht 162.6 cm; Wt 67.0 kg
[~2023-11-01 08:13] MED LIST changes: +P50 PO
[2023-11-01 08:16] VITALS: O2SAT 98
[2023-11-01 08:22] VITALS: BP 139/87; PULSE 113; RESP 18; TEMP 98.7; O2SAT 99
== END 2023-11-01 09:33 | disposition left against medical advice (07) ==
LOC: ER 08:51
DX: F23 Brief psychotic disorder (principal); Z53.21 Procedure and treatment not carried out due to patient leaving prior to being seen by health care provider

== ENCOUNTER 2023-11-12 00:34 | Emergency (ER) | payer MEDICAID ==
[~2023-11-12] VITALS: Ht 162.6 cm; Wt 67.1 kg
[2023-11-12 00:54] VITALS: O2SAT 100
[2023-11-12] MEDS ORDERED: ALBU6.7H15 INH (02:01)
[2023-11-12] MEDS ORDERED: OLAN5TAB3 PO (02:01)
[2023-11-12] MEDS: OLANZAPINE 5MG TABLET PO SCH (02:15)
[2023-11-12 02:40] LABS: BASOPHILS % 0.4 % (0.0-2.0); EOSINOPHILS % 0.7 % (0.0-5.0); HEMATOCRIT. 40.9 % (36.0-48.0); HEMOGLOBIN. 13.2 g/dL (12.0-16.0); MEAN CORPUSCULAR HEMOGLOBIN 27.6 pg (28.0-32.0); MEAN CORPUSCULAR HGB CONC 32.4 g/dL (31.0-37.0); MEAN CORPUSCULAR VOLUME 85.1 fL (81.0-99.0); MEAN PLATELET VOLUME 6.7 fl (7.4-10.4); MONOCYTES % 6.7 % (2.0-8.0); NEUTROPHILS % 66.2 % (40.0-76.0); PLATELET 476 x1000/uL (130-400); RED CELL DISTRIBUTION WIDTH 14.2 % (11.6-14.6); WHITE BLOOD COUNT 11.3 x1000/uL (4.5-11.0)
[2023-11-12 02:51] LABS: ACETAMINOPHEN < 2 ug/mL (10-30)
[2023-11-12 02:54] LABS: ETHANOL BLOOD < 10 mg/dL (<10)
[2023-11-12 03:43] LABS: CHLORIDE 105 mEq/L (98-107); POTASSIUM 3.4 mEq/L (3.5-5.1); SODIUM 139 mEq/L (136-145)
[2023-11-12 03:44] LABS: CALCIUM 9.5 mg/dL (8.7-10.4); CARBON DIOXIDE 24 mEq/L (21-32)
[2023-11-12 03:49] LABS: CREATININE 0.9 mg/dL (0.6-1.0); GLUCOSE 84 mg/dL (70-105); UREA NITROGEN BLOOD 16 mg/dL (9-23)
[2023-11-12 03:50] LABS: CLARITY URINE TURBID (CLEAR); COLOR URINE DARK YELLOW (YELLOW); GLUCOSE URINE NEGATIVE (NEGATIVE); KETONES URINE TRACE (NEGATIVE); LEUKOCYTE ESTERASE URINE TRACE (NEGATIVE); NITRITE URINE NEGATIVE (NEGATIVE); OCCULT BLOOD URINE 2+ (NEGATIVE); PH URINE 5.5 (4.5-8.0); PROTEIN URINE TRACE (NEGATIVE); SPECIFIC GRAVITY URINE 1.035 (1.005-1.030)
[2023-11-12 03:51] LABS: ALANINE AMINOTRANSFERASE 12 IU/L (10-49); ALBUMIN 4.8 g/dL (3.2-4.8); ASPARTATE AMINOTRANSFERASE 22 IU/L (<34); BILIRUBIN DIRECT 0.2 mg/dL (<=3.0)
[2023-11-12 03:52] LABS: BILIRUBIN TOTAL 0.7 mg/dL (0.1-1.0); PROTEIN TOTAL 7.9 g/dL (6.0-8.3)
[2023-11-12 04:03] LABS: HCG SCREEN NEGATIVE
[2023-11-12 04:11] LABS: *AMPHETAMINES SCREEN URINE PRESUMPTIVE POSITIVE (NEGATIVE); *BARBITURATES SCREEN URINE NEGATIVE (NEGATIVE); *BENZODIAZEPINES SCREEN URINE NEGATIVE (NEGATIVE); *COCAINE SCREEN URINE PRESUMPTIVE POSITIVE (NEGATIVE)
[2023-11-12 04:12] LABS: CANNABINOID URINE SCREEN NEGATIVE (NEGATIVE); ECSTASY MDMA SCREEN URINE CONF.TEST INDICATED (NEGATIVE); METHADONE URINE SCREEN NEGATIVE (NEGATIVE); OPIATES URINE SCREEN NEGATIVE (NEGATIVE); PHENCYCLIDINE URINE SCREEN NEGATIVE (NEGATIVE)
[2023-11-12 04:19] LABS: BACTERIA URINE 2+; SQUAMOUS EPITHELIAL CELL URINE 1+ /lpf (RARE/1+)
[2023-11-12 12:38] VITALS: BP 122/70; PULSE 83; RESP 20; TEMP 36.78072; O2SAT 100
== END 2023-11-12 12:47 | disposition home or self-care (01) ==
LOC: ER 00:34
DX: F19.10 Other psychoactive substance abuse, uncomplicated (principal); F12.90 Cannabis use, unspecified, uncomplicated; F14.90 Cocaine use, unspecified, uncomplicated; F15.90 Other stimulant use, unspecified, uncomplicated; Z79.899 Other long term (current) drug therapy; Z88.0 Allergy status to penicillin; Z20.822 Contact with and (suspected) exposure to COVID-19
CPT/HCPCS: 36415; 71045; 80048; 80076; 80305; 80307; 80320; 80329; 81003; 84703; 85025; 87426; 99284; G0480

== ENCOUNTER 2023-11-14 06:14 | Emergency (ER) | payer MEDICAID ==
[~2023-11-14] VITALS: Ht 162.6 cm; Wt 64.0 kg
[2023-11-14 06:57] VITALS: BP 146/62; PULSE 89; RESP 20; TEMP 98.8; O2SAT 100; O2SAT 99
== END 2023-11-14 09:53 | disposition home or self-care (01) ==
LOC: ER 06:14
DX: F98.9 Unspecified behavioral and emotional disorders with onset usually occurring in childhood and adolescence (principal); Z53.21 Procedure and treatment not carried out due to patient leaving prior to being seen by health care provider

== ENCOUNTER 2023-11-17 17:46 | Emergency (ER) | payer MEDICAID ==
[~2023-11-17] VITALS: Ht 175.3 cm; Wt 86.0 kg
[2023-11-17 17:59] VITALS: O2SAT 99
[2023-11-17 18:17] VITALS: BP 126/69; PULSE 98; RESP 16; TEMP 98.3; O2SAT 100
== END 2023-11-18 00:16 | disposition left against medical advice (07) ==
LOC: ER 17:46
DX: R51.9 Headache, unspecified (principal); Z53.21 Procedure and treatment not carried out due to patient leaving prior to being seen by health care provider

== ENCOUNTER 2023-12-07 13:33 | Emergency (ER) | payer MEDICAID ==
[~2023-12-07] VITALS: Ht 165.1 cm; Wt 61.0 kg
[2023-12-07 13:45] VITALS: O2SAT 98
[2023-12-07] MEDS ORDERED: OLANZAPINE 10MG TABLET PO SCH (14:30)
[2023-12-07] MEDS ORDERED: ALBU90AE INH (14:40)
[2023-12-07] MEDS: LORAZEPAM 0.5MG TABLET PO ONE (14:53)
[2023-12-07] MEDS: IBUPROFEN 600MG TABLET PO ONE (14:53)
[2023-12-07 14:56] VITALS: BP 118/77; PULSE 100; RESP 18; TEMP 36.55848; O2SAT 98
== END 2023-12-07 14:54 | disposition home or self-care (01) ==
LOC: ER 13:33
DX: J06.9 Acute upper respiratory infection, unspecified (principal); Z88.0 Allergy status to penicillin; Z79.899 Other long term (current) drug therapy; Z86.59 Personal history of other mental and behavioral disorders
CPT/HCPCS: 99283

== ENCOUNTER 2023-12-23 22:32 | Emergency (ER) | payer MEDICAID ==
[~2023-12-23] VITALS: Ht 162.6 cm; Wt 68.0 kg
[~2023-12-23 22:32] MED LIST changes: +ALBU90AE INH
[2023-12-23 22:43] VITALS: O2SAT 100
[2023-12-23] MEDS ORDERED: OLAN5TAB3 MT (23:34)
[2023-12-23 23:47] VITALS: BP 134/78; PULSE 108; RESP 18; TEMP 36.66960; O2SAT 100
== END 2023-12-23 23:48 | disposition home or self-care (01) ==
LOC: ER 22:32
DX: F20.9 Schizophrenia, unspecified (principal); F41.9 Anxiety disorder, unspecified; Z76.0 Encounter for issue of repeat prescription; Z79.899 Other long term (current) drug therapy; Z88.0 Allergy status to penicillin
CPT/HCPCS: 99281

== ENCOUNTER 2024-03-21 07:26 | Emergency (ER) | payer MEDICAID ==
[~2024-03-21 07:26] MED LIST changes: +OLAN5TAB3 MT
[2024-03-21 07:42] VITALS: PULSE 98; RESP 18; O2SAT 99
== END 2024-03-21 08:49 | disposition left against medical advice (07) ==
LOC: ER 07:34
DX: R51.9 Headache, unspecified (principal); Z53.21 Procedure and treatment not carried out due to patient leaving prior to being seen by health care provider

== ENCOUNTER 2024-03-22 14:31 | Emergency (ER) | payer MEDICAID, OTHER ==
[~2024-03-22] VITALS: Ht 160 cm; Wt 71.0 kg
[2024-03-22 14:36] VITALS: BP 100/60; PULSE 95; RESP 16; TEMP 98.4; O2SAT 97
== END 2024-03-22 15:58 ==
LOC: ER 14:31
DX: Z02.89 Encounter for other administrative examinations (principal); F41.9 Anxiety disorder, unspecified; F20.9 Schizophrenia, unspecified; Z65.3 Problems related to other legal circumstances; Z79.1 Long term (current) use of non-steroidal anti-inflammatories (NSAID); Z79.52 Long term (current) use of systemic steroids; Z79.899 Other long term (current) drug therapy; Z88.0 Allergy status to penicillin
CPT/HCPCS: 99283